=== PATIENT | female | born 1990 ===

== ENCOUNTER 2022-03-09 11:10 | Outpatient (CLI) | payer OTHER | END 2022-03-09 12:21 | disposition home or self-care (01) | LOC: PRENATAL 11:10 | PROVIDERS: ATTEND Obstetrics & Gynecology Maternal & Fetal Medicine | DX: O35.0XX0 Maternal care for (suspected) central nervous system malformation in fetus, not applicable or unspecified (principal); O35.3XX0 Maternal care for (suspected) damage to fetus from viral disease in mother, not applicable or unspecified; O10.019 Pre-existing essential hypertension complicating pregnancy, unspecified trimester; O99.210 Obesity complicating pregnancy, unspecified trimester; Z3A.22 22 weeks gestation of pregnancy ==

== ENCOUNTER 2022-04-18 10:47 | Outpatient (CLI) | payer OTHER | END 2022-04-18 12:53 | disposition home or self-care (01) | LOC: PRENATAL 10:47 | PROVIDERS: ATTEND Obstetrics & Gynecology Maternal & Fetal Medicine | DX: O26.849 Uterine size-date discrepancy, unspecified trimester (principal); O10.019 Pre-existing essential hypertension complicating pregnancy, unspecified trimester; O99.210 Obesity complicating pregnancy, unspecified trimester; Z3A.28 28 weeks gestation of pregnancy ==